=== PATIENT | female | born 1950 | race African-American/Black ===

== ENCOUNTER 2018-06-03 13:07 | Emergency (ER) | payer OTHER ==
[~2018-06-03] VITALS: Ht 167.6 cm; Wt 68.5 kg
[2018-06-03 13:36] VITALS: Ht 167.6 cm; Wt 68.5 kg
[2018-06-03 16:09] LABS: BASOPHIL % 0.9 % (0-2); PLATELET COUNT 247 x10^3mcL (130-400)
[2018-06-03 16:12] LABS: CALCIUM 8.8 mg/dL (8.5-10.1); CARBON DIOXIDE 25.9 mmol/L (21-32); CHLORIDE SERUM 105 mmol/L (98-107); CREATININE SERUM 0.7 mg/dL (0.6-1.0); GFR1 > 60 mL/min; GLUCOSE SERUM 92 mg/dL (74-106); POTASSIUM SERUM 4.1 mmol/L (3.5-5.1); SODIUM SERUM 139 mmol/L (136-145)
[2018-06-03 18:17] VITALS: BP 164/93
== END 2018-06-03 18:17 | disposition home or self-care (01) ==
LOC: ED 13:07
PROVIDERS: Emergency Medicine
DX: R51 Headache (principal); R42 Dizziness and giddiness; H53.149 Visual discomfort, unspecified
CPT/HCPCS: J0780; J1885; J2405; Q9967